=== PATIENT | female | born 1945 | race Caucasian/White ===

== ENCOUNTER 2024-03-11 04:56 | Observation (INO) | payer OTHER ==
[2024-03-11] MEDS ORDERED: ACETAMINOPHEN INJECTION 100 ML ONE ×2 (05:39→10:55)
[2024-03-11] MEDS: ACETAMINOPHEN 1000 MG/100 ML BAG IVPB ONE (05:39)
[2024-03-11 05:44] LABS: BASO % 0.8 % (0-2.0); EOS % 1.9 % (0-4.5); HEMATOCRIT 37.1 % (32.4-45.2); LYMPH % 9.1 % (8-40); MCH 27.9 pg (25.7-33.7); MCHC 32.4 g/dl (32.0-36.0); MEAN CELL VOLUME 85.9 fl (80-96); MEAN PLT VOLUME 8.8 fl (7.5-11.1); MONO % 9.5 % (3.8-10.2); NEUT % 78.7 % (42.8-82.8); PLATELET COUNT 212 10^3/uL (134-434); RBC 4.32 M/mm3 (3.60-5.2); RDW 13.2 % (11.6-15.6); WHITE BLOOD COUNT 7.4 K/mm3 (4.0-10.0)
[2024-03-11 05:52] LABS: INR 1.09 (0.83-1.09); PROTHROMBIN TIME (PATIENT) 11.9 SEC (9.7-13.0)
[2024-03-11 05:55] LABS: ACTIVATED PTT 26.1 SECONDS (25.2-36.5)
[2024-03-11 06:06] LABS: POTASSIUM 3.6 mmol/L (3.5-5.1)
[2024-03-11 06:08] LABS: ALBUMIN 3.7 g/dl (3.4-5.0); BLOOD UREA NITROGEN 16.5 mg/dL (7-18); CALCIUM 9.4 mg/dL (8.5-10.1)
[2024-03-11 06:09] LABS: MAGNESIUM 1.4 mg/dL (1.8-2.4)
[2024-03-11 06:12] LABS: CREATININE 1.2 mg/dL (0.55-1.3)
[2024-03-11 06:13] LABS: TOT PROT 7.3 g/dl (6.4-8.2)
[2024-03-11] MEDS ORDERED: MORPHINE SULFATE 2 MG/ML SYRINGE ONE ×2 (06:38→11:58)
[2024-03-11] MEDS ORDERED: MAGNESIUM SULFATE IN WATER 2 GM/50 ML IVPB IVPB ONE (06:38)
[2024-03-11] MEDS: MAGNESIUM SULF 50% (8.12 MEQ/2 ML-1 GM VIAL) IVPB ONE ×2 (06:41→06:54)
[2024-03-11] MEDS: morphine SULFATE 4 MG/ML VIAL IVPUSH ONE (06:54)
[2024-03-11 07:10] LABS: BILIRUBIN,TOTAL 0.3 mg/dL (0.2-1)
[2024-03-11] MEDS: OSELTAMIVIR PHOSPHATE 75 MG CAPSULE PO ONE (08:50)
[2024-03-11] MEDS ORDERED: OSELTAMIVIR PHOSPHATE 75 MG CAPSULE ONE (09:40)
[2024-03-11] MEDS ORDERED: morphine CARPU-JECT 2 MG/1 ML DISP.SYRIN IVPUSH PRN (10:43)
[2024-03-11] MEDS: ACETAMINOPHEN 500 MG TABLET (FP) PO PRN (11:46)
[2024-03-11] MEDS ORDERED: guaiFENesin 200 MG/10 ML 10 ML UNIT-DOSE CUPS ONE (13:23)
[2024-03-11] MEDS: guaiFENesin 200 MG/10 ML 10 ML UNIT-DOSE CUPS PO PRN (13:30)
[2024-03-11] MEDS ORDERED: HYDROCHLOROTHIAZIDE 25 MG TABLET (FP) ONE (16:07)
[2024-03-11] MEDS ORDERED: LIDOCAINE 5% TOPICAL PATCH ONE (16:07)
[2024-03-11] MEDS ORDERED: LOSARTAN POTASSIUM 50 MG TABLET ONE (16:07)
[2024-03-11] MEDS: LOSARTAN POTASSIUM 50 MG TABLET PO SCH (16:17)
[2024-03-11] MEDS: LIDOCAINE 5% TOPICAL PATCH TP SCH (16:17)
[2024-03-11] MEDS: HYDROCHLOROTHIAZIDE 25 MG TABLET (FP) PO SCH (16:17)
[2024-03-11] MEDS ORDERED: ENOXAPARIN NA (PORCINE) 40 MG/0.4 ML DISP.SYRIN SQ ONE (17:00)
[2024-03-11] MEDS: ENOXAPARIN NA (PORCINE) 40 MG/0.4 ML DISP.SYRIN SQ SCH (17:03)
[2024-03-11] MEDS ORDERED: ACETAMINOPHEN 500 MG TABLET (FP) ONE (19:10)
[2024-03-11] MEDS: LIDOCAINE PATCH REMOVAL MC SCH (22:21)
[2024-03-11] MEDS ORDERED: ATENOLOL 50 MG TABLET (FP) ONE (22:23)
[2024-03-11] MEDS ORDERED: OSELTAMIVIR PHOSPHATE 30 MG CAPSULE ONE (22:23)
[2024-03-11] MEDS: OSELTAMIVIR PHOSPHATE 30 MG CAPSULE PO SCH (22:30)
[2024-03-11] MEDS: ATENOLOL 50 MG TABLET (FP) PO SCH (22:30)
[2024-03-11] MEDS: NORTRIPTYLINE HCL 25 MG CAPSULE PO SCH (22:30)
[2024-03-11 23:55] VITALS: BMI 25.9
[2024-03-12 08:52] LABS: HEMATOCRIT 38.9 % (32.4-45.2); HEMOGLOBIN 12.6 GM/dL (10.7-15.3); MCH 27.9 pg (25.7-33.7); MCHC 32.4 g/dl (32.0-36.0); MEAN CELL VOLUME 86.2 fl (80-96); MEAN PLT VOLUME 9.3 fl (7.5-11.1); PLATELET COUNT 197 10^3/uL (134-434); RBC 4.51 M/mm3 (3.60-5.2); RDW 13.3 % (11.6-15.6); WHITE BLOOD COUNT 5.3 K/mm3 (4.0-10.0)
[2024-03-12 09:05] LABS: CHOLESTEROL 207 mg/dL (50-200)
[2024-03-12 09:06] LABS: LDL CHOLESTEROL (ONLY SJRH) 120 mg/dL (5-100)
[2024-03-12 09:08] LABS: HDL CHOLESTEROL 63 mg/dL (40-60)
[2024-03-12 09:16] LABS: POTASSIUM 3.3 mmol/L (3.5-5.1)
[2024-03-12 09:22] LABS: CALCIUM 9.1 mg/dL (8.5-10.1)
[2024-03-12 09:23] LABS: ALBUMIN 3.4 g/dl (3.4-5.0); BLOOD UREA NITROGEN 17.6 mg/dL (7-18)
[2024-03-12 09:26] LABS: CREATININE 1.1 mg/dL (0.55-1.3); PHOSPHOROUS 3.8 mg/dL (2.5-4.9)
[2024-03-12 09:27] LABS: BILIRUBIN,TOTAL 0.4 mg/dL (0.2-1)
[2024-03-12] MEDS ORDERED: ATENOLOL 50 MG TABLET (FP) PO SCH (10:00)
[2024-03-12] MEDS ORDERED: LOSARTAN 50MG/HCTZ 12.5MG 1 TAB PO SCH (10:00)
[2024-03-12] MEDS: POTASSIUM CHLORIDE TABS 20 MEQ TABLET.ER (FP) PO ONE (18:29)
[2024-03-12] MEDS: FAMOTIDINE 20 MG TABLET PO SCH (21:13)
[2024-03-12] MEDS ORDERED: MECLIZINE HCL 25 MG TABLET (FP) PO SCH (22:00)
[2024-03-12] MEDS: BENZOCAINE/MENTH/CETYLPYRD CL 1 EACH LOZENGE MM PRN (23:11)
[2024-03-13 08:23] LABS: HEMOGLOBIN 12.5 GM/dL (10.7-15.3); MCH 27.7 pg (25.7-33.7); MEAN CELL VOLUME 86.6 fl (80-96); MEAN PLT VOLUME 9.2 fl (7.5-11.1); PLATELET COUNT 233 10^3/uL (134-434); RDW 13.2 % (11.6-15.6); WHITE BLOOD COUNT 5.5 K/mm3 (4.0-10.0)
[2024-03-13 08:29] LABS: POTASSIUM 3.4 mmol/L (3.5-5.1)
[2024-03-13 08:49] LABS: ALBUMIN 3.4 g/dl (3.4-5.0); BLOOD UREA NITROGEN 19.8 mg/dL (7-18); MAGNESIUM 1.8 mg/dL (1.8-2.4)
[2024-03-13 08:50] LABS: CALCIUM 9.3 mg/dL (8.5-10.1)
[2024-03-13 08:52] LABS: CREATININE 1.1 mg/dL (0.55-1.3)
[2024-03-13 08:53] LABS: PHOSPHOROUS 3.5 mg/dL (2.5-4.9)
[2024-03-13 08:54] LABS: BILIRUBIN,TOTAL 0.2 mg/dL (0.2-1); TOT PROT 7.2 g/dl (6.4-8.2)
[2024-03-13] MEDS: KCL 10 MEQ IVPB 10 MEQ/100 ML INFUS.BAG IVPB SCH (13:13)
[2024-03-13] MEDS: MECLIZINE HCL 25 MG TABLET (FP) PO PRN (13:47)
[2024-03-13] MEDS: POTASSIUM CHLORIDE TABS 20 MEQ TABLET.ER (FP) PO ONE (14:57)
[2024-03-13] MEDS: ROSUVASTATIN CA 5 MG TABLET PO SCH (22:00)
[2024-03-14] MEDS: LOSARTAN POTASSIUM 25 MG TABLET PO SCH (10:12)
[2024-03-14 12:23] LABS: POTASSIUM 3.6 mmol/L (3.5-5.1)
[2024-03-14 12:26] LABS: CALCIUM 9.3 mg/dL (8.5-10.1)
[2024-03-14 12:27] LABS: ALBUMIN 3.2 g/dl (3.4-5.0); BLOOD UREA NITROGEN 24.1 mg/dL (7-18)
[2024-03-14 12:30] LABS: CREATININE 1.1 mg/dL (0.55-1.3)
[2024-03-14 12:31] LABS: BILIRUBIN,TOTAL 0.3 mg/dL (0.2-1); TOT PROT 6.6 g/dl (6.4-8.2)
[2024-03-15 05:56] VITALS: RESP 19
[2024-03-15 08:12] LABS: POTASSIUM 3.6 mmol/L (3.5-5.1)
[2024-03-15 08:19] LABS: CALCIUM 9.1 mg/dL (8.5-10.1)
[2024-03-15 08:20] LABS: ALBUMIN 3.3 g/dl (3.4-5.0); BLOOD UREA NITROGEN 22.8 mg/dL (7-18); MAGNESIUM 1.6 mg/dL (1.8-2.4)
[2024-03-15 08:24] LABS: CREATININE 0.9 mg/dL (0.55-1.3); PHOSPHOROUS 3.2 mg/dL (2.5-4.9)
[2024-03-15 08:25] LABS: BILIRUBIN,TOTAL 0.2 mg/dL (0.2-1); TOT PROT 6.6 g/dl (6.4-8.2)
[2024-03-15] MEDS: MAGNESIUM OXIDE 400 MG TABLET (FP) PO ONE (10:48)
[2024-03-15] MEDS: MAGNESIUM 2GM/50ML STERILE WATER IVPB IVPB ONE (10:51)
[2024-03-15 13:22] VITALS: BP 140/91; PULSE 71; TEMP 98.1
== END 2024-03-15 12:47 | disposition home or self-care (01) ==
LOC: JER 04:56 → JERBED 09:23 → J4W 23:23
PROVIDERS: ADMIT Internal Medicine; ATTEND Internal Medicine
PROC: 3E033NZ Introduction of Analgesics, Hypnotics, Sedatives into Peripheral Vein, Percutaneous Approach (ICD-10-PCS; principal; 2024-03-11)
PROC: 3E023GC Introduction of Other Therapeutic Substance into Muscle, Percutaneous Approach (ICD-10-PCS; 2024-03-11)
PROC: 3E033GC Introduction of Other Therapeutic Substance into Peripheral Vein, Percutaneous Approach (ICD-10-PCS; 2024-03-11)
DX: J09.X2 Influenza due to identified novel influenza A virus with other respiratory manifestations (principal); S82.401A Unspecified fracture of shaft of right fibula, initial encounter for closed fracture; I10 Essential (primary) hypertension; R00.1 Bradycardia, unspecified; R42 Dizziness and giddiness; W18.39XA Other fall on same level, initial encounter; Y93.89 Activity, other specified; Y92.002 Bathroom of unspecified non-institutional (private) residence as the place of occurrence of the external cause
CPT/HCPCS: 0241U-QW; 36415; 70450-TC; 71045-TC-FY; 73562-TC-RT-FY; 73590-TC-RT-FY; 73610-TC-RT-FY; 73630-TC-RT-FY; 73700-TC-RT; 80053; 80061; 82962; 83735; 84100; 84439; 84443; 84484; 85025; 85027; 85610; 85730; 86140; 93005; 93010; 93306-TC; 96372; 96374; 96375; 96376; 97116-GP; 97162-GP; 99285-25; G0378; J0131